=== PATIENT | female | born 1975 | race Caucasian/White ===

== ENCOUNTER 2020-08-17 12:26 | Emergency (ER) | payer BC ==
[~2020-08-17] VITALS: Ht 165.1 cm; Wt 83.9 kg
[2020-08-17 14:06] VITALS: BP 141/75; Ht 165.1 cm; Wt 83.9 kg
== END 2020-08-17 17:40 | disposition home or self-care (01) ==
LOC: ED 12:26
DX: S39.012A Strain of muscle, fascia and tendon of lower back, initial encounter (principal); R31.9 Hematuria, unspecified; X58.XXXA Exposure to other specified factors, initial encounter; Y93.89 Activity, other specified; Y92.89 Other specified places as the place of occurrence of the external cause; Y99.8 Other external cause status
CPT/HCPCS: J1885